=== PATIENT | female | born 1975 | race Caucasian/White ===

== ENCOUNTER 2023-10-26 05:28 | Day surgery (SDC) | payer OTHER ==
[2023-10-24 14:20] VITALS: BMI 19.8
[2023-10-26] MEDS ORDERED: TRIAMCINOLONE ACET 40MG/1ML VIAL ONE (07:08)
[2023-10-26] MEDS: LIDOCAINE HCL 1% PRESERVATIVE FREE - 30ML VIAL IJ ONE (09:52)
[2023-10-26 10:09] VITALS: BP 112/65; PULSE 55; RESP 18; TEMP 98
[2023-10-26] MEDS ORDERED: ACETAMINOPHEN 500 MG TABLET (FP) PO PRN (11:55)
== END 2023-10-26 10:40 | disposition home or self-care (01) ==
LOC: JASU-SURG 05:28
PROVIDERS: ATTEND Pain Medicine Pain Medicine
PROC: 3E0T33Z Introduction of Anti-inflammatory into Peripheral Nerves and Plexi, Percutaneous Approach (ICD-10-PCS; 2023-10-26)
PROC: 3E0T3BZ Introduction of Anesthetic Agent into Peripheral Nerves and Plexi, Percutaneous Approach (ICD-10-PCS; principal; 2023-10-26 09:30)
DX: M47.816 Spondylosis without myelopathy or radiculopathy, lumbar region (principal)
CPT/HCPCS: 76000-TC-FY; 81025